=== PATIENT | female | born 1985 | race Caucasian/White ===

== ENCOUNTER 2024-01-25 18:55 | Emergency (ER) | payer MEDICAID ==
[~2024-01-25] VITALS: Ht 167.6 cm; Wt 96.2 kg
[2024-01-25] MEDS ORDERED: CEPH-585 PO (20:29)
[2024-01-25] MEDS ORDERED: LIDO5CRE2 TOP (20:29)
[2024-01-25 20:34] VITALS: BP 142/99; PULSE 76; RESP 15; TEMP 99.1; O2SAT 99
== END 2024-01-25 20:35 | disposition home or self-care (01) ==
LOC: ER 18:55
DX: S90.822A Blister (nonthermal), left foot, initial encounter (principal); S90.821A Blister (nonthermal), right foot, initial encounter; L03.115 Cellulitis of right lower limb; L03.116 Cellulitis of left lower limb; Z91.041 Radiographic dye allergy status; X58.XXXA Exposure to other specified factors, initial encounter; Y93.89 Activity, other specified; Y92.89 Other specified places as the place of occurrence of the external cause; Y99.8 Other external cause status
CPT/HCPCS: 99283